=== PATIENT | female | born 1995 | race Caucasian/White ===

== ENCOUNTER 2021-11-25 20:44 | Inpatient (IN) | payer OTHER ==
[2021-11-25] MEDS ORDERED: Diphenoxylate HCl/Atropine Tablet PO PRN ×2 (21:28)
[2021-11-25] MEDS ORDERED: Ondansetron PF 4 MG/2 ML Vial IVP PRN (21:28)
[2021-11-25] MEDS ORDERED: Lidocaine 1% (PF) 30 ML VIAL SC PRN (21:28)
[2021-11-25] MEDS ORDERED: Carboprost 250 MCG/ML AMP IM PRN (21:28)
[2021-11-25] MEDS ORDERED: Butorphanol Tartrate 1 MG/ML VIAL SLOW IVP PRN (21:28)
[2021-11-25] MEDS ORDERED: hydrALAZINE 20 MG/ML VIAL SLOW IVP PRN (21:28)
[2021-11-25] MEDS ORDERED: Ibuprofen 800 MG TAB PO PRN (21:28)
[2021-11-25] MEDS ORDERED: Methylergonovine 0.2 MG/ML VIAL IM PRN (21:28)
[2021-11-25] MEDS ORDERED: Promethazine HCl 25 MG/ML VIAL IM PRN (21:28)
[2021-11-25] MEDS ORDERED: Acetaminophen 500 MG TAB PO PRN (21:28)
[2021-11-25] MEDS ORDERED: HYDROcodone/Acetaminophen 5/325 mg Tablet PO PRN ×2 (21:28)
[2021-11-25] MEDS ORDERED: Lactated Ringer's 1,000 ML IV SCH (21:30)
[2021-11-25] MEDS ORDERED: NS w/ Oxytocin 30 units 500 ML IV SCH ×2 (21:30)
[2021-11-25 22:17] LABS: Hemoglobin 10.9 g/dL (12.0-15.5); Mean Corpuscular HGB CONC 31.1 g/dL (32.0-36.0); Mean Corpuscular Hemoglobin 24.5 pg (27.0-33.0); Mean Corpuscular Volume 78.7 fl (81.6-98.3); Mean Platelet Volume 11.3 fl (7.4-10.4); Platelet Count 277 10x3/uL (150-450); RBC Distribution Width 14.8 % (11.5-14.5); Red Blood Cell (RBC) Count 4.45 10x6/uL (3.90-5.03); White Blood Cell (WBC) Count 7.9 10x3/uL (3.5-10.5)
[2021-11-25 22:48] LABS: Hep B Surf Ag Non-Reactive S/CO (NonReactive); Syphilis Antibody Nonreactive (Nonreactive); Syphilis Antibody Index 0.05 S/CO (<1.00 Non-Reactive)
[2021-11-25 22:49] LABS: HBSAg Index 0.21 S/CO (0-0.99)
[2021-11-25 23:19] VITALS: BMI 34.3
[2021-11-25 23:42] LABS: SARS-CoV-2 NAA Rapid Test DETECTED (NotDetected)
[2021-11-26] MEDS ORDERED: Fentanyl 2 mcg/Bup 0.1% Cadd 100 ML ONE (02:59)
[2021-11-26] MEDS ORDERED: Hydrocerin (Eucerin) Cream 120 gm Jar TOP PRN (03:36)
[2021-11-26] MEDS ORDERED: Promethazine HCl 25 MG/ML VIAL IM PRN ×2 (03:36→10:48)
[2021-11-26] MEDS ORDERED: diphenhydrAMINE 50 MG/ML VIAL IVP PRN (03:36)
[2021-11-26] MEDS ORDERED: Lactated Ringer's 500 ML IV PRN (03:36)
[2021-11-26] MEDS ORDERED: ePHEDrine Sulfate 50 MG/10 ML VIAL SLOW IVP PRN (03:36)
[2021-11-26] MEDS ORDERED: Naloxone HCl 0.4 mg/ml Vial IVP PRN ×2 (03:36)
[2021-11-26] MEDS ORDERED: Ondansetron PF 4 MG/2 ML Vial IVP PRN ×2 (03:36→10:48)
[2021-11-26] MEDS ORDERED: Acetaminophen 325 MG TAB PO PRN (03:36)
[2021-11-26] MEDS ORDERED: Fentanyl 2 mcg/Bupivacaine 0.1% Cassette 100 ML EPIDURAL SCH (03:45)
[2021-11-26] MEDS ORDERED: Communication Order-Pharmacy FS SCH (03:45)
[2021-11-26] MEDS ORDERED: Milk Of Magnesia 30 ML UDCUP PO PRN (10:48)
[2021-11-26] MEDS ORDERED: Lanolin Ointment 7 GM TUBE TOP PRN (10:48)
[2021-11-26] MEDS ORDERED: Bisacodyl 10 MG SUPP PR PRN (10:48)
[2021-11-26] MEDS ORDERED: Benzocaine-Menthol 82.5 ML CAN TOP PRN (10:48)
[2021-11-26] MEDS ORDERED: Boostrix 0.5 ML (Tdap) VIAL IM ONE (10:48)
[2021-11-26] MEDS ORDERED: hydrALAZINE 20 MG/ML VIAL SLOW IVP PRN (10:48)
[2021-11-26] MEDS ORDERED: HYDROcodone/Acetaminophen 5/325 mg Tablet PO PRN (10:48)
[2021-11-26] MEDS ORDERED: diphenhydrAMINE 25 MG CAP PO PRN (10:48)
[2021-11-26] MEDS ORDERED: NS w/ Oxytocin 30 units 500 ML IV SCH (10:48)
[2021-11-26] MEDS ORDERED: NS w/ Oxytocin 30 units 500 ML ONE (10:55)
[2021-11-26] MEDS: Ibuprofen 800 MG TAB PO SCH ×2 (16:14→19:58)
[2021-11-26] MEDS: Ferrous Sulfate 325 MG TAB PO SCH (16:15)
[2021-11-26] MEDS: Docusate 100 MG CAP PO SCH (19:58)
[2021-11-27] MEDS: HYDROcodone/Acetaminophen 5/325 mg Tablet PO PRN ×2 (01:07→12:37)
[2021-11-27] MEDS: Ibuprofen 800 MG TAB PO SCH ×2 (05:01→14:44)
[2021-11-27 07:26] VITALS: BP 108/59; TEMP 98.2
[2021-11-27] MEDS: Ferrous Sulfate 325 MG TAB PO SCH (07:43)
[2021-11-27] MEDS ORDERED: Prenatal Vitamin 1 TAB PO SCH (09:00)
[2021-11-27] MEDS: Docusate 100 MG CAP PO SCH (09:07)
== END 2021-11-27 15:44 | disposition home or self-care (01) | DRG 807 ==
LOC: CSHLD/OP 20:44 → CSHLD 21:26 → CSHPP 11-26 13:30
PROVIDERS: ADMIT Family Medicine; ATTEND Family Medicine
PROC: 10E0XZZ Delivery of Products of Conception, External Approach (ICD-10-PCS; principal; 2021-11-26)
PROC: 0HQ9XZZ Repair Perineum Skin, External Approach (ICD-10-PCS; 2021-11-26)
DX: O42.02 Full-term premature rupture of membranes, onset of labor within 24 hours of rupture (principal); Z37.0 Single live birth; Z3A.40 40 weeks gestation of pregnancy; O70.0 First degree perineal laceration during delivery
CPT/HCPCS: 51702; 85027; 86780; 86850; 86900; 86901; 87340; 99285; U0002

== ENCOUNTER 2023-04-23 12:08 | Inpatient (IN) | payer OTHER ==
[~2023-04-23 12:08] MED LIST: Bupivacaine HCl 0.5%/Epinephrine 1:200,000/PF 30 ml Vial ONE; ePHEDrine Sulfate 50 MG/10 ML VIAL ONE
[2023-04-23 15:18] VITALS: BMI 35.9
[2023-04-23 16:46] LABS: Hemoglobin 9.9 g/dL (12.0-15.5); Mean Corpuscular HGB CONC 32.4 g/dL (32.0-36.0); Mean Corpuscular Hemoglobin 25.2 pg (27.0-33.0); Mean Corpuscular Volume 77.9 fl (81.6-98.3); Mean Platelet Volume 11.3 fl (7.4-10.4); Platelet Count 276 10x3/uL (150-450); RBC Distribution Width 16.2 % (11.5-14.5); Red Blood Cell (RBC) Count 3.93 10x6/uL (3.90-5.03); White Blood Cell (WBC) Count 8.8 10x3/uL (3.5-10.5)
[2023-04-23] MEDS ORDERED: Carboprost 250 MCG/ML AMP IM PRN (16:55)
[2023-04-23] MEDS ORDERED: Misoprostol 200 MCG TAB PR PRN (16:55)
[2023-04-23] MEDS ORDERED: HYDROcodone/Acetaminophen 5/325 mg Tablet PO PRN ×2 (16:55)
[2023-04-23] MEDS ORDERED: Ibuprofen 800 MG TAB PO PRN (16:55)
[2023-04-23] MEDS ORDERED: fentaNYL 50 mcg/mL 1 mL Vial SLOW IVP PRN (16:55)
[2023-04-23] MEDS ORDERED: Butorphanol Tartrate 1 MG/ML VIAL SLOW IVP PRN (16:55)
[2023-04-23] MEDS ORDERED: Tranexamic Acid 1,000 MG/10 ML VIAL IVP PRN (16:55)
[2023-04-23] MEDS ORDERED: Diphenoxylate HCl/Atropine Tablet PO PRN ×2 (16:55)
[2023-04-23] MEDS ORDERED: Zolpidem Tartrate 5 MG TAB PO PRN (16:55)
[2023-04-23] MEDS ORDERED: Acetaminophen 500 MG TAB PO PRN (16:55)
[2023-04-23] MEDS ORDERED: Promethazine HCl 25 MG/ML VIAL IM PRN (16:55)
[2023-04-23] MEDS ORDERED: Ondansetron PF 4 MG/2 ML Vial IVP PRN (16:55)
[2023-04-23] MEDS ORDERED: Lidocaine 1% (PF) 30 ML VIAL SC PRN (16:55)
[2023-04-23] MEDS ORDERED: Methylergonovine 0.2 MG/ML VIAL IM PRN (16:55)
[2023-04-23] MEDS ORDERED: hydrALAZINE 20 MG/ML VIAL SLOW IVP PRN (16:55)
[2023-04-23] MEDS ORDERED: NS w/ Oxytocin 30 units 500 ML IV SCH ×3 (17:00)
[2023-04-23 17:13] LABS: HBSAg Index 0.16 S/CO (0-0.99); Hep B Surf Ag - L&D Non-Reactive S/CO (NonReactive)
[2023-04-23] MEDS: Misoprostol 100 MCG TAB VAG SCH ×2 (17:13→21:15)
[2023-04-23 17:14] LABS: Syphilis Antibody Nonreactive (Nonreactive); Syphilis Antibody Index 0.04 S/CO (<1.00 Non-Reactive)
[2023-04-23] MEDS: Lactated Ringer's 1,000 ML IV SCH (17:14)
[2023-04-23] MEDS ORDERED: fentaNYL/Ropivacaine Epidural 100 ML ONE (23:03)
[2023-04-23] MEDS ORDERED: Lidocaine 1% (PF) 30 ML VIAL ONE (23:34)
[2023-04-24] MEDS ORDERED: diphenhydrAMINE 50 MG/ML VIAL IVP PRN (00:08)
[2023-04-24] MEDS ORDERED: Naloxone HCl 0.4 mg/ml Vial IVP PRN ×2 (00:08)
[2023-04-24] MEDS ORDERED: ePHEDrine Sulfate 50 MG/10 ML VIAL SLOW IVP PRN (00:08)
[2023-04-24] MEDS ORDERED: Moisturizing Cream (Eucerin) 113 GM JAR TOP PRN (00:08)
[2023-04-24] MEDS ORDERED: Acetaminophen 325 MG TAB PO PRN (00:08)
[2023-04-24] MEDS ORDERED: Ondansetron PF 4 MG/2 ML Vial IVP PRN ×2 (00:08→03:14)
[2023-04-24] MEDS ORDERED: Lactated Ringer's 500 ML IV PRN (00:08)
[2023-04-24] MEDS ORDERED: Promethazine HCl 25 MG/ML VIAL IM PRN ×2 (00:08→03:14)
[2023-04-24] MEDS ORDERED: fentaNYL 2 mcg/Ropivacaine 0.2% Epidural 100 ML CADD EPIDURAL SCH (00:15)
[2023-04-24] MEDS ORDERED: Communication Order-Pharmacy FS SCH (00:15)
[2023-04-24] MEDS ORDERED: PHENYLEPHRINE-NS 100 MCG/ML 10 ML SYRINGE ONE (00:26)
[2023-04-24] MEDS ORDERED: diphenhydrAMINE 25 MG CAP PO PRN (03:14)
[2023-04-24] MEDS ORDERED: Benzocaine-Menthol 82.5 ML CAN TOP PRN (03:14)
[2023-04-24] MEDS ORDERED: Methylergonovine 0.2 MG/ML VIAL IM PRN (03:14)
[2023-04-24] MEDS ORDERED: Zolpidem Tartrate 5 MG TAB PO PRN (03:14)
[2023-04-24] MEDS ORDERED: HYDROcodone/Acetaminophen 5/325 mg Tablet PO PRN ×2 (03:14)
[2023-04-24] MEDS ORDERED: Lanolin Ointment 7 GM TUBE TOP PRN (03:14)
[2023-04-24] MEDS ORDERED: Measles/Mumps/Rubella 10 MCG/0.5 ML VIAL SC ONE (03:14)
[2023-04-24] MEDS ORDERED: hydrALAZINE 20 MG/ML VIAL SLOW IVP PRN (03:14)
[2023-04-24] MEDS ORDERED: Varicella virus, LIVE 0.5 ML VIAL SC ONE (03:14)
[2023-04-24] MEDS ORDERED: Preparation H Ointment 28 GM TUBE PR PRN (03:14)
[2023-04-24] MEDS ORDERED: NS w/ Oxytocin 30 units 500 ML IV SCH (03:14)
[2023-04-24] MEDS ORDERED: Milk Of Magnesia 30 ML UDCUP PO PRN (03:14)
[2023-04-24] MEDS ORDERED: Boostrix 0.5 ML (Tdap) VIAL (>/=7 yrs of age) IM ONE (03:14)
[2023-04-24] MEDS ORDERED: Bisacodyl 10 MG SUPP PR PRN (03:14)
[2023-04-24] MEDS ORDERED: Misoprostol 200 MCG TAB VAG PRN (03:14)
[2023-04-24 05:04] LABS: Hemoglobin 9.3 g/dL (12.0-15.5); Mean Corpuscular Hemoglobin 24.3 pg (27.0-33.0); Mean Corpuscular Volume 78.5 fl (81.6-98.3); Mean Platelet Volume 11.1 fl (7.4-10.4); Platelet Count 267 10x3/uL (150-450); RBC Distribution Width 16.3 % (11.5-14.5); Red Blood Cell (RBC) Count 3.82 10x6/uL (3.90-5.03)
[2023-04-24] MEDS ORDERED: Ibuprofen 800 MG TAB PO SCH (06:00)
[2023-04-24] MEDS: Prenatal Vitamin 1 TAB PO SCH (09:07)
[2023-04-24] MEDS: Docusate 100 MG CAP PO SCH ×2 (09:08→21:16)
[2023-04-24] MEDS: Ferrous Sulfate 325 MG TAB PO SCH ×2 (09:08→16:49)
[2023-04-24] MEDS: Ibuprofen 800 MG TAB PO SCH ×2 (11:19→17:22)
[2023-04-24] MEDS ORDERED: Acetaminophen 500 MG TAB PO PRN (20:40)
[2023-04-25] MEDS: Ibuprofen 800 MG TAB PO SCH ×2 (07:12→08:12)
[2023-04-25 07:42] VITALS: BP 116/74; TEMP 98.5
[2023-04-25] MEDS: Lactated Ringer's 1,000 ML IV SCH (08:05)
[2023-04-25] MEDS: Misoprostol 100 MCG TAB VAG SCH (08:05)
[2023-04-25] MEDS: Prenatal Vitamin 1 TAB PO SCH (08:11)
[2023-04-25] MEDS: Docusate 100 MG CAP PO SCH (08:13)
[2023-04-25] MEDS: Ferrous Sulfate 325 MG TAB PO SCH (08:13)
== END 2023-04-25 16:00 | disposition home or self-care (01) | DRG 807 ==
LOC: CSHLD 14:39 → CSHPP 04-24 03:40
PROVIDERS: ADMIT Obstetrics & Gynecology; ATTEND Obstetrics & Gynecology
PROC: 10E0XZZ Delivery of Products of Conception, External Approach (ICD-10-PCS; principal; 2023-04-24)
DX: O70.0 First degree perineal laceration during delivery (principal); Z37.0 Single live birth; Z3A.39 39 weeks gestation of pregnancy
CPT/HCPCS: 36415; 51702; 85027; 86780; 86850; 86900; 86901; 87340; J7120